=== PATIENT | male | born 1955 | race African-American/Black ===

== ENCOUNTER 2018-01-11 05:50 | Inpatient (IN) ==
[2018-01-11] MEDS ORDERED: VANCOMYCIN 1,000 MG VIAL ONE (06:01)
[2018-01-11] MEDS ORDERED: ceFAZolin 2,000 MG in PREMIX 1 EACH IV ONE (06:30)
[2018-01-11] MEDS ORDERED: VANCOMYCIN INJ 1,000 MG in SODIUM CHLORIDE 0.9% 250 ML IV ONE (06:30)
[2018-01-11] MEDS ORDERED: BACITRACIN OINT 0.9 GM PACK TOP ONE (06:43)
[2018-01-11] MEDS ORDERED: LACTATED RINGERS 1,000 ML IV SCH (07:00)
[2018-01-11] MEDS ORDERED: ONDANSETRON 4 MG/2 ML VIAL IV PRN (07:21)
[2018-01-11] MEDS ORDERED: MORPHINE 4 MG/1 ML VIAL IV PRN ×2 (07:21)
[2018-01-11] MEDS ORDERED: MAGNESIUM HYDROXIDE SUSP 30 ML UDCUP PO PRN (07:21)
[2018-01-11] MEDS ORDERED: oxyCODONE IR 5 MG TABLET PO PRN ×2 (07:21)
[2018-01-11] MEDS ORDERED: ZALEPLON 5 MG CAPSULE PO PRN (07:21)
[2018-01-11] MEDS ORDERED: diphenhydrAMINE CAP 25 MG CAPSULE PO PRN (07:23)
[2018-01-11] MEDS ORDERED: fentaNYL 100 MCG/2 ML VIAL ONE (09:34)
[2018-01-11] MEDS ORDERED: PROPOFOL 200 MG/20 ML VIAL IV ONE (09:34)
[2018-01-11] MEDS ORDERED: LACTATED RINGERS 1,000 ML IV ONE (09:35)
[2018-01-11] MEDS ORDERED: TRANEXAMIC ACID 1,000 MG/10 ML VIAL ONE (09:35)
[2018-01-11] MEDS ORDERED: PHENYLEPHRINE 10 MG/1 ML VIAL IV ONE (09:35)
[2018-01-11] MEDS ORDERED: MIDAZOLAM 2 MG/2 ML VIAL ONE (09:35)
[2018-01-11] MEDS ORDERED: ACETAMINOPHEN 1,000 MG/100 ML VIAL IV ONE (09:35)
[2018-01-11 09:40] LABS: Apearance,Urine CLEAR (Clear); Bilirubin,Urine Negative (Negative); Blood, Urine Negative (Negative); Glucose,Urine (UA) Negative (Negative); Ketones,Urine Negative (Negative); Mucus,Urine Occasional /LPF (Occasional); Nitrite,Urine Negative (Negative); Protein,Urine Negative; RBC,Urine <1 /HPF (0-4); Urine Color Yellow (Yellow); Urine Specific Gravity 1.015 (1.001-1.035); Urine Urobilinogen < 2.0 EU/DL (0.2-1.0); WBC,Urine <1 /HPF (0-6)
[2018-01-11 11:23] LABS: Basophils % 0.3 % (0.0-0.8); Eosinophils # 0.5 10*3/uL (0.0-0.87); Eosinophils % 4.6 % (0.00-10.9); Hematocrit 41.8 VOL% (42.0-52.0); Hemoglobin 13.3 GM/DL (14.0-18.0); Immature Granulocytes % 0.4 %; Immature Granulocytes Absolute 0.05 #; Lymphocytes # 1.8 10*3/uL (1.4-4.0); Lymphocytes % 15.8 % (21.2-54.2); Mean Corpuscular HGB Conc 31.8 GM/DL (32-36); Mean Corpuscular Hemoglobin 27 PG (27-34); Mean Corpuscular Volume 84.1 FL (87-102); Mean Platelet Volume 11.2 FL (9.6-12.0); Monocytes # 1.1 10*3/uL (0.11-0.8); Monocytes % 9.1 % (1.7-12.7); Neutrophils # 8.1 10*3/uL (1.4-7.4); Neutrophils % 69.8 % (38.7-73.9); Platelet Count 204 T/CUMM (130-400); Red Blood Count 4.97 MC/CUMM (3.8-5.5); Red Cell Distribution Width 15.1 % (9.3-17.3); White Blood Count 11.6 T/CUMM (4-12)
[2018-01-11 11:59] LABS: Calcium 8.5 MG/DL (8.5-10.1); Osmolality,Calculated 282.3 MOS/KG (273-304); Potassium 4.5 MMOL/L (3.5-5.1)
[2018-01-11] MEDS: LACTATED RINGERS 1,000 ML IV SCH ×2 (12:47→16:06)
[2018-01-11] MEDS: PANTOPRAZOLE 40 MG TABLET PO SCH (13:11)
[2018-01-11] MEDS: KETOROLAC 30 MG/1 ML VIAL IV SCH ×3 (13:11→20:39)
[2018-01-11] MEDS: SERTRALINE 50 MG TABLET PO SCH (13:11)
[2018-01-11] MEDS: DOCUSATE SODIUM 100 MG CAPSULE PO SCH ×2 (13:11→20:38)
[2018-01-11] MEDS: ceFAZolin 2,000 MG in PREMIX 1 EACH IV SCH ×2 (13:12→20:40)
[2018-01-11] MEDS: ACETAMINOPHEN 500 MG TABLET PO SCH ×2 (15:18→17:53)
[2018-01-11] MEDS: HydrOXYzine PAMOATE 50 MG CAPSULE PO SCH (20:38)
[2018-01-12] MEDS: ACETAMINOPHEN 500 MG TABLET PO SCH ×2 (00:20→05:19)
[2018-01-12] MEDS: LACTATED RINGERS 1,000 ML IV SCH (00:26)
[2018-01-12] MEDS: KETOROLAC 30 MG/1 ML VIAL IV SCH ×3 (02:47→08:02)
[2018-01-12] MEDS: FONDAPARINUX 2.5 MG/0.5 ML SYRINGE SUBCUT SCH (05:19)
[2018-01-12 06:32] LABS: Basophils % 0.4 % (0.0-0.8); Eosinophils # 0.4 10*3/uL (0.0-0.87); Eosinophils % 4.8 % (0.00-10.9); Hematocrit 39.5 VOL% (42.0-52.0); Hemoglobin 12.3 GM/DL (14.0-18.0); Immature Granulocytes % 0.3 %; Immature Granulocytes Absolute 0.02 #; Lymphocytes # 1.5 10*3/uL (1.4-4.0); Lymphocytes % 20.6 % (21.2-54.2); Mean Corpuscular HGB Conc 31.1 GM/DL (32-36); Mean Corpuscular Hemoglobin 26 PG (27-34); Mean Corpuscular Volume 84.8 FL (87-102); Mean Platelet Volume 10.9 FL (9.6-12.0); Monocytes # 1.3 10*3/uL (0.11-0.8); Monocytes % 17.6 % (1.7-12.7); Neutrophils # 4.1 10*3/uL (1.4-7.4); Neutrophils % 56.3 % (38.7-73.9); Platelet Count 163 T/CUMM (130-400); Red Blood Count 4.66 MC/CUMM (3.8-5.5); Red Cell Distribution Width 14.8 % (9.3-17.3); White Blood Count 7.3 T/CUMM (4-12)
[2018-01-12 06:55] LABS: Calcium 8.1 MG/DL (8.5-10.1); Osmolality,Calculated 273.7 MOS/KG (273-304); Potassium 3.8 MMOL/L (3.5-5.1)
[2018-01-12 06:55] LABS: Band Neutrophils 3 % (0-10); Eosinophils 4 % (0-10); Hypochromasia 1+; Lymphocytes 30 % (20-55); Ovalocytes Slight; Platelet Estimate Normal; Segmented Neutrophils 53 % (50-85); Total Cells Counted 100
[2018-01-12] MEDS: hydroCHLOROthiazide 25 MG TABLET PO SCH (08:01)
[2018-01-12] MEDS: PANTOPRAZOLE 40 MG TABLET PO SCH (08:01)
[2018-01-12] MEDS: DOCUSATE SODIUM 100 MG CAPSULE PO SCH ×2 (08:01→20:16)
[2018-01-12] MEDS: OLMESARTAN 20 MG TABLET PO SCH (08:02)
[2018-01-12] MEDS: amLODIPine 5 MG TABLET PO SCH (08:02)
[2018-01-12] MEDS: SERTRALINE 50 MG TABLET PO SCH (08:05)
[2018-01-12] MEDS: CELECOXIB 200 MG CAPSULE PO SCH (14:47)
[2018-01-12] MEDS: HydrOXYzine PAMOATE 50 MG CAPSULE PO SCH (20:16)
[2018-01-13 05:59] LABS: Basophils % 0.3 % (0.0-0.8); Eosinophils # 0.4 10*3/uL (0.0-0.87); Eosinophils % 3.4 % (0.00-10.9); Hematocrit 38.2 VOL% (42.0-52.0); Hemoglobin 12.1 GM/DL (14.0-18.0); Immature Granulocytes % 0.7 %; Immature Granulocytes Absolute 0.08 #; Lymphocytes # 2.3 10*3/uL (1.4-4.0); Lymphocytes % 20.9 % (21.2-54.2); Mean Corpuscular HGB Conc 31.7 GM/DL (32-36); Mean Corpuscular Hemoglobin 27 PG (27-34); Mean Corpuscular Volume 84.1 FL (87-102); Mean Platelet Volume 11.3 FL (9.6-12.0); Monocytes # 1.9 10*3/uL (0.11-0.8); Monocytes % 16.8 % (1.7-12.7); Neutrophils # 6.4 10*3/uL (1.4-7.4); Neutrophils % 57.9 % (38.7-73.9); Platelet Count 162 T/CUMM (130-400); Red Blood Count 4.54 MC/CUMM (3.8-5.5); Red Cell Distribution Width 14.7 % (9.3-17.3)
[2018-01-13 06:26] LABS: Eosinophils 7 % (0-10); Hypochromasia 1+; Lymphocytes 20 % (20-55); Ovalocytes Slight; Platelet Estimate Adequate; Segmented Neutrophils 62 % (50-85); Total Cells Counted 100
[2018-01-13] MEDS: FONDAPARINUX 2.5 MG/0.5 ML SYRINGE SUBCUT SCH (06:44)
[2018-01-13] MEDS: CELECOXIB 200 MG CAPSULE PO SCH (09:40)
[2018-01-13] MEDS: OLMESARTAN 20 MG TABLET PO SCH (09:40)
[2018-01-13] MEDS: PANTOPRAZOLE 40 MG TABLET PO SCH (09:40)
[2018-01-13] MEDS: SERTRALINE 50 MG TABLET PO SCH (09:40)
[2018-01-13] MEDS: amLODIPine 5 MG TABLET PO SCH (09:40)
[2018-01-13] MEDS: DOCUSATE SODIUM 100 MG CAPSULE PO SCH ×2 (09:40→21:06)
[2018-01-13] MEDS: hydroCHLOROthiazide 25 MG TABLET PO SCH (09:40)
[2018-01-13] MEDS: HydrOXYzine PAMOATE 50 MG CAPSULE PO SCH (21:06)
[2018-01-14 05:10] LABS: Basophils % 0.5 % (0.0-0.8); Eosinophils # 0.4 10*3/uL (0.0-0.87); Eosinophils % 4.2 % (0.00-10.9); Hematocrit 34.6 VOL% (42.0-52.0); Hemoglobin 11.2 GM/DL (14.0-18.0); Immature Granulocytes % 0.7 %; Immature Granulocytes Absolute 0.06 #; Lymphocytes # 1.6 10*3/uL (1.4-4.0); Lymphocytes % 18.6 % (21.2-54.2); Mean Corpuscular HGB Conc 32.4 GM/DL (32-36); Mean Corpuscular Hemoglobin 27 PG (27-34); Mean Platelet Volume 11.5 FL (9.6-12.0); Monocytes # 1.3 10*3/uL (0.11-0.8); Monocytes % 14.9 % (1.7-12.7); Neutrophils # 5.2 10*3/uL (1.4-7.4); Neutrophils % 61.1 % (38.7-73.9); Platelet Count 168 T/CUMM (130-400); Red Blood Count 4.17 MC/CUMM (3.8-5.5); Red Cell Distribution Width 14.6 % (9.3-17.3); White Blood Count 8.5 T/CUMM (4-12)
[2018-01-14] MEDS: FONDAPARINUX 2.5 MG/0.5 ML SYRINGE SUBCUT SCH (06:44)
[2018-01-14 07:38] VITALS: BP 128/74
[2018-01-14] MEDS: PANTOPRAZOLE 40 MG TABLET PO SCH (09:08)
[2018-01-14] MEDS: amLODIPine 5 MG TABLET PO SCH (09:08)
[2018-01-14] MEDS: hydroCHLOROthiazide 25 MG TABLET PO SCH (09:08)
[2018-01-14] MEDS: CELECOXIB 200 MG CAPSULE PO SCH (09:08)
[2018-01-14] MEDS: SERTRALINE 50 MG TABLET PO SCH (09:09)
[2018-01-14] MEDS: OLMESARTAN 20 MG TABLET PO SCH (09:09)
[2018-01-14] MEDS: DOCUSATE SODIUM 100 MG CAPSULE PO SCH (09:09)
== END 2018-01-14 10:48 | disposition swing bed (61) | DRG 470 ==
LOC: N.OR 05:50 → N.SDSINP 05:51 → N.3E 07:21
PROVIDERS: ADMIT Orthopaedic Surgery; ATTEND Orthopaedic Surgery

== ENCOUNTER 2018-11-16 05:56 | Inpatient (IN) ==
[2018-11-16] MEDS ORDERED: VANCOMYCIN INJ 1,000 MG in SODIUM CHLORIDE 0.9% 250 ML IV ONE ×2 (06:00→16:56)
[2018-11-16] MEDS ORDERED: ceFAZolin 1,000 MG in SYRINGE 1 EACH IV ONE (06:00)
[2018-11-16] MEDS ORDERED: VANCOMYCIN 1,000 MG VIAL ONE (06:01)
[2018-11-16] MEDS ORDERED: ceFAZolin 1,000 MG VIAL ONE (06:01)
[2018-11-16] MEDS ORDERED: TRANEXAMIC ACID 1,000 MG/10 ML VIAL ONE (06:41)
[2018-11-16] MEDS ORDERED: GABAPENTIN 400 MG CAPSULE PO ONE (07:18)
[2018-11-16] MEDS ORDERED: DIAZEPAM 5 MG TABLET PO ONE (07:18)
[2018-11-16] MEDS ORDERED: PANTOPRAZOLE 40 MG TABLET PO ONE ×2 (07:18→07:36)
[2018-11-16] MEDS ORDERED: ACETAMINOPHEN 500 MG TABLET PO ONE (07:18)
[2018-11-16] MEDS ORDERED: DIAZEPAM 5 MG TABLET ONE (07:22)
[2018-11-16] MEDS ORDERED: GABAPENTIN 400 MG CAPSULE ONE (07:22)
[2018-11-16] MEDS ORDERED: FAMOTIDINE 20 MG TABLET ONE (07:23)
[2018-11-16] MEDS ORDERED: ACETAMINOPHEN 500 MG TABLET ONE (07:23)
[2018-11-16] MEDS ORDERED: BUPIVACAINE 0.5% 50 ML VIAL ONE (07:30)
[2018-11-16] MEDS ORDERED: LACTATED RINGERS 1,000 ML IV SCH (07:30)
[2018-11-16] MEDS ORDERED: LIDOCAINE 1% 5 ML VIAL ONE (07:30)
[2018-11-16] MEDS ORDERED: BUPIVACAINE SPINAL 0.75% 2 ML AMP SPINAL ONE (07:30)
[2018-11-16] MEDS ORDERED: MORPHINE 10 MG/10 ML VIAL ONE (07:31)
[2018-11-16] MEDS ORDERED: DEXAMETHASONE 4 MG/1 ML VIAL ONE (07:31)
[2018-11-16] MEDS ORDERED: EPINEPHrine 1 MG/ML VIAL ONE (07:31)
[2018-11-16] MEDS ORDERED: oxyCODONE IR 5 MG TABLET PO PRN ×2 (08:55)
[2018-11-16] MEDS ORDERED: MAGNESIUM HYDROXIDE SUSP 30 ML UDCUP PO PRN (08:55)
[2018-11-16] MEDS ORDERED: ONDANSETRON 4 MG/2 ML VIAL IV PRN (08:55)
[2018-11-16] MEDS ORDERED: diphenhydrAMINE CAP 25 MG CAPSULE PO PRN (08:55)
[2018-11-16] MEDS ORDERED: MORPHINE 4 MG/1 ML VIAL IV PRN ×2 (08:55)
[2018-11-16] MEDS ORDERED: BACITRACIN OINT 0.9 GM PACK TOP ONE (09:27)
[2018-11-16 10:31] LABS: Apearance,Urine CLEAR (Clear); Bilirubin,Urine Negative (Negative); Blood, Urine Negative (Negative); Glucose,Urine (UA) Negative (Negative); Hyaline Casts,Urine 1 /LPF (0-3); Ketones,Urine Negative (Negative); Nitrite,Urine Negative (Negative); Protein,Urine Negative; RBC,Urine 1 /HPF (0-4); Urine Color Straw (Yellow); Urine Urobilinogen < 2.0 EU/DL (0.2-1.0); WBC,Urine <1 /HPF (0-6)
[2018-11-16] MEDS ORDERED: PROPOFOL 200 MG/20 ML VIAL IV ONE (10:31)
[2018-11-16] MEDS ORDERED: fentaNYL 100 MCG/2 ML VIAL ONE (10:32)
[2018-11-16] MEDS ORDERED: KETAMINE 500 MG/10 ML VIAL ONE (10:32)
[2018-11-16] MEDS ORDERED: SODIUM CHLORIDE 0.9% 100 ML IV ONE (10:33)
[2018-11-16] MEDS ORDERED: PHENYLEPHRINE 10 MG/1 ML VIAL IV ONE (10:33)
[2018-11-16] MEDS ORDERED: MIDAZOLAM 2 MG/2 ML VIAL ONE (10:33)
[2018-11-16] MEDS ORDERED: LACTATED RINGERS 1,000 ML IV ONE (10:33)
[2018-11-16] MEDS ORDERED: ONDANSETRON 4 MG/2 ML VIAL ONE (10:33)
[2018-11-16] MEDS ORDERED: PHENYLEPHRINE 1 MG/10 ML SYRINGE IV ONE (10:33)
[2018-11-16] MEDS ORDERED: hydrOXYzine HCL 25 MG/1 ML VIAL IM PRN (10:36)
[2018-11-16] MEDS ORDERED: diphenhydrAMINE 50 MG/1 ML VIAL IV PRN (10:36)
[2018-11-16] MEDS: DOCUSATE SODIUM 100 MG CAPSULE PO SCH ×2 (12:47→20:44)
[2018-11-16] MEDS: SERTRALINE 100 MG TABLET PO SCH (12:47)
[2018-11-16] MEDS: ACETAMINOPHEN 500 MG TABLET PO SCH ×2 (12:47→18:19)
[2018-11-16] MEDS: TAMSULOSIN 0.4 MG CAPSULE PO SCH (12:47)
[2018-11-16] MEDS: KETOROLAC 30 MG/1 ML VIAL IV SCH ×2 (12:48→18:17)
[2018-11-16] MEDS: ceFAZolin 2,000 MG in SYRINGE 1 EACH IV SCH ×2 (12:50→20:45)
[2018-11-16] MEDS: PANTOPRAZOLE 40 MG TABLET PO SCH (12:51)
[2018-11-16] MEDS: LACTATED RINGERS 1,000 ML IV SCH ×2 (12:58→20:46)
[2018-11-16] MEDS: traZODone 50 MG TABLET PO SCH (20:44)
[2018-11-17] MEDS: ACETAMINOPHEN 500 MG TABLET PO SCH ×2 (01:43→05:55)
[2018-11-17] MEDS: KETOROLAC 30 MG/1 ML VIAL IV SCH ×2 (01:43→05:59)
[2018-11-17] MEDS: FONDAPARINUX 2.5 MG/0.5 ML SYRINGE SUBCUT SCH (03:38)
[2018-11-17 05:23] LABS: Basophils % 0.3 % (0.0-0.8); Eosinophils % 0.3 % (0.00-10.9); Hematocrit 33.3 VOL% (42.0-52.0); Hemoglobin 9.8 GM/DL (14.0-18.0); Immature Granulocytes % 0.4 %; Immature Granulocytes Absolute 0.03 #; Lymphocytes # 1.1 10*3/uL (1.4-4.0); Mean Corpuscular HGB Conc 29.4 GM/DL (32-36); Mean Corpuscular Volume 87.6 FL (87-102); Mean Platelet Volume 11.4 FL (9.6-12.0); Monocytes % 14.2 % (1.7-12.7); Neutrophils % 70.8 % (38.7-73.9); Platelet Count 191 T/CUMM (130-400); Red Cell Distribution Width 14.6 % (9.3-17.3); White Blood Count 7.5 T/CUMM (4-12)
[2018-11-17 05:38] LABS: Calcium 8.5 MG/DL (8.5-10.1); Osmolality,Calculated 276.5 MOS/KG (273-304)
[2018-11-17] MEDS ORDERED: KETOROLAC 30 MG/1 ML VIAL ONE (05:45)
[2018-11-17] MEDS: LACTATED RINGERS 1,000 ML IV SCH (05:50)
[2018-11-17] MEDS: PANTOPRAZOLE 40 MG TABLET PO SCH (09:40)
[2018-11-17] MEDS: SERTRALINE 100 MG TABLET PO SCH (09:40)
[2018-11-17] MEDS: OLMESARTAN 20 MG TABLET PO SCH (09:40)
[2018-11-17] MEDS: hydroCHLOROthiazide 25 MG TABLET PO SCH ×2 (09:40→09:41)
[2018-11-17] MEDS: TAMSULOSIN 0.4 MG CAPSULE PO SCH (09:40)
[2018-11-17] MEDS: DOCUSATE SODIUM 100 MG CAPSULE PO SCH ×2 (09:41→20:50)
[2018-11-17] MEDS: amLODIPine 5 MG TABLET PO SCH (09:41)
[2018-11-17] MEDS ORDERED: ceFAZolin 2,000 MG in SYRINGE 1 EACH IV ONE (13:30)
[2018-11-17] MEDS ORDERED: CITRIC ACID/SODIUM CITRATE 30 ML UDCUP ONE (13:59)
[2018-11-17] MEDS ORDERED: SUGAMMADEX 200 MG/2 ML VIAL IV ONE (14:32)
[2018-11-17] MEDS ORDERED: HYDROmorphone 2 MG/1 ML VIAL ONE (14:57)
[2018-11-17] MEDS ORDERED: PROPOFOL 200 MG/20 ML VIAL IV ONE (15:00)
[2018-11-17] MEDS: HYDROmorphone 2 MG/1 ML VIAL IV PRN ×4 (15:00→15:15)
[2018-11-17] MEDS ORDERED: MIDAZOLAM 2 MG/2 ML VIAL ONE (15:01)
[2018-11-17] MEDS ORDERED: GLYCOPYRROLATE 0.4 MG/2 ML VIAL ONE (15:01)
[2018-11-17] MEDS ORDERED: ONDANSETRON 4 MG/2 ML VIAL ONE (15:01)
[2018-11-17] MEDS ORDERED: fentaNYL 100 MCG/2 ML VIAL ONE (15:01)
[2018-11-17] MEDS ORDERED: ePHEDrine 50 MG/ML AMP ONE (15:01)
[2018-11-17] MEDS ORDERED: ROCURONIUM 100 MG/10 ML VIAL IV ONE (15:02)
[2018-11-17] MEDS ORDERED: SUCCINYLCHOLINE 200 MG/10 ML VIAL ONE (15:02)
[2018-11-17] MEDS: CELECOXIB 200 MG CAPSULE PO SCH (20:23)
[2018-11-17] MEDS: traZODone 50 MG TABLET PO SCH (20:50)
[2018-11-18] MEDS: LACTATED RINGERS 1,000 ML IV SCH ×3 (05:42→22:14)
[2018-11-18] MEDS ORDERED: ceFAZolin 2,000 MG in SODIUM CHLORIDE 0.9% 100 ML IV ONE (06:00)
[2018-11-18] MEDS ORDERED: VANCOMYCIN INJ 1,750 MG in SODIUM CHLORIDE 0.9% 500 ML IV ONE ×2 (06:00→22:00)
[2018-11-18 06:44] LABS: Basophils % 0.4 % (0.0-0.8); Eosinophils # 0.2 10*3/uL (0.0-0.87); Eosinophils % 2.7 % (0.00-10.9); Hematocrit 30.1 VOL% (42.0-52.0); Hemoglobin 9.3 GM/DL (14.0-18.0); Immature Granulocytes % 0.3 %; Immature Granulocytes Absolute 0.03 #; Lymphocytes # 1.8 10*3/uL (1.4-4.0); Lymphocytes % 19.4 % (21.2-54.2); Mean Corpuscular HGB Conc 30.9 GM/DL (32-36); Mean Corpuscular Volume 84.1 FL (87-102); Monocytes % 15.6 % (1.7-12.7); Neutrophils % 61.6 % (38.7-73.9); Platelet Count 199 T/CUMM (130-400); Red Blood Count 3.58 MC/CUMM (3.8-5.5); Red Cell Distribution Width 14.6 % (9.3-17.3)
[2018-11-18 07:10] LABS: Eosinophils 2 % (0-10); Hypochromasia 1+; Lymphocytes 16 % (20-55); Platelet Estimate Adequate; Segmented Neutrophils 68 % (50-85); Total Cells Counted 100
[2018-11-18] MEDS ORDERED: EPINEPHrine 1 MG/ML VIAL ONE (08:49)
[2018-11-18] MEDS ORDERED: BUPIVACAINE SPINAL 0.75% 2 ML AMP SPINAL ONE (08:49)
[2018-11-18] MEDS ORDERED: DEXAMETHASONE 4 MG/1 ML VIAL ONE (08:49)
[2018-11-18] MEDS ORDERED: ROPIVACAINE 0.5% 30 ML VIAL ONE (08:49)
[2018-11-18] MEDS ORDERED: fentaNYL 100 MCG/2 ML VIAL ONE ×2 (08:50→11:45)
[2018-11-18] MEDS ORDERED: BACITRACIN OINT 0.9 GM PACK TOP ONE ×2 (08:51→11:21)
[2018-11-18] MEDS: CELECOXIB 200 MG CAPSULE PO SCH (11:09)
[2018-11-18] MEDS: OLMESARTAN 20 MG TABLET PO SCH (11:09)
[2018-11-18] MEDS: TAMSULOSIN 0.4 MG CAPSULE PO SCH (11:09)
[2018-11-18] MEDS: DOCUSATE SODIUM 100 MG CAPSULE PO SCH ×2 (11:09→20:54)
[2018-11-18] MEDS: amLODIPine 5 MG TABLET PO SCH (11:10)
[2018-11-18] MEDS: SERTRALINE 100 MG TABLET PO SCH (11:10)
[2018-11-18] MEDS: hydroCHLOROthiazide 25 MG TABLET PO SCH (11:10)
[2018-11-18] MEDS: PANTOPRAZOLE 40 MG TABLET PO SCH (11:10)
[2018-11-18] MEDS ORDERED: PROPOFOL 200 MG/20 ML VIAL IV ONE (11:44)
[2018-11-18] MEDS ORDERED: GLYCOPYRROLATE 0.4 MG/2 ML VIAL ONE (11:45)
[2018-11-18] MEDS ORDERED: SUCCINYLCHOLINE 200 MG/10 ML VIAL ONE (11:45)
[2018-11-18] MEDS ORDERED: DESFLURANE 1 UNIT/15 MINUTE INH ONE (11:45)
[2018-11-18] MEDS ORDERED: PHENYLEPHRINE 1 MG/10 ML SYRINGE IV ONE (11:45)
[2018-11-18] MEDS ORDERED: NEOSTIGMINE 10 MG/10 ML VIAL ONE (11:45)
[2018-11-18] MEDS ORDERED: SEVOFLURANE 1 UNIT/15 MINUTE INH ONE (11:45)
[2018-11-18] MEDS ORDERED: LACTATED RINGERS 1,000 ML IV ONE (11:45)
[2018-11-18] MEDS ORDERED: ROCURONIUM 100 MG/10 ML VIAL IV ONE (11:45)
[2018-11-18] MEDS ORDERED: KETAMINE 500 MG/10 ML VIAL ONE (11:47)
[2018-11-18] MEDS ORDERED: MIDAZOLAM 2 MG/2 ML VIAL ONE (11:50)
[2018-11-18] MEDS: HYDROmorphone 2 MG/1 ML VIAL IV PRN ×2 (12:05→12:20)
[2018-11-18] MEDS ORDERED: ONDANSETRON 4 MG/2 ML VIAL IV PRN (12:12)
[2018-11-18] MEDS ORDERED: HYDROmorphone 2 MG/1 ML VIAL ONE (12:14)
[2018-11-18] MEDS: ceFAZolin 2,000 MG in SODIUM CHLORIDE 0.9% 100 ML IV SCH (18:13)
[2018-11-18] MEDS: traZODone 50 MG TABLET PO SCH (20:37)
[2018-11-19] MEDS: ceFAZolin 2,000 MG in SODIUM CHLORIDE 0.9% 100 ML IV SCH ×3 (02:04→17:36)
[2018-11-19 04:52] LABS: Basophils % 0.1 % (0.0-0.8); Eosinophils # 0.1 10*3/uL (0.0-0.87); Eosinophils % 0.7 % (0.00-10.9); Hematocrit 27.8 VOL% (42.0-52.0); Hemoglobin 8.5 GM/DL (14.0-18.0); Immature Granulocytes % 0.6 %; Immature Granulocytes Absolute 0.05 #; Lymphocytes # 1.1 10*3/uL (1.4-4.0); Lymphocytes % 12.5 % (21.2-54.2); Mean Corpuscular HGB Conc 30.6 GM/DL (32-36); Mean Corpuscular Volume 84.5 FL (87-102); Mean Platelet Volume 11.4 FL (9.6-12.0); Monocytes % 16.1 % (1.7-12.7); Platelet Count 180 T/CUMM (130-400); Red Blood Count 3.29 MC/CUMM (3.8-5.5); Red Cell Distribution Width 14.4 % (9.3-17.3); White Blood Count 8.9 T/CUMM (4-12)
[2018-11-19 05:18] LABS: Hypochromasia 1+
[2018-11-19 05:19] LABS: Platelet Estimate Adequate
[2018-11-19] MEDS: DOCUSATE SODIUM 100 MG CAPSULE PO SCH ×2 (09:21→21:13)
[2018-11-19] MEDS: TAMSULOSIN 0.4 MG CAPSULE PO SCH (09:21)
[2018-11-19] MEDS: OLMESARTAN 20 MG TABLET PO SCH (09:21)
[2018-11-19] MEDS: hydroCHLOROthiazide 25 MG TABLET PO SCH (09:21)
[2018-11-19] MEDS: SERTRALINE 100 MG TABLET PO SCH (09:21)
[2018-11-19] MEDS: PANTOPRAZOLE 40 MG TABLET PO SCH (09:21)
[2018-11-19] MEDS: amLODIPine 5 MG TABLET PO SCH (09:21)
[2018-11-19] MEDS: CELECOXIB 200 MG CAPSULE PO SCH (09:21)
[2018-11-19] MEDS: LACTATED RINGERS 1,000 ML IV SCH (12:08)
[2018-11-19] MEDS: traZODone 50 MG TABLET PO SCH (21:13)
[2018-11-20] MEDS: ceFAZolin 2,000 MG in SODIUM CHLORIDE 0.9% 100 ML IV SCH ×2 (01:25→09:12)
[2018-11-20] MEDS: FONDAPARINUX 2.5 MG/0.5 ML SYRINGE SUBCUT SCH (02:15)
[2018-11-20] MEDS: OLMESARTAN 20 MG TABLET PO SCH (09:12)
[2018-11-20] MEDS: TAMSULOSIN 0.4 MG CAPSULE PO SCH (09:12)
[2018-11-20] MEDS: SERTRALINE 100 MG TABLET PO SCH (09:12)
[2018-11-20] MEDS: PANTOPRAZOLE 40 MG TABLET PO SCH (09:12)
[2018-11-20] MEDS: DOCUSATE SODIUM 100 MG CAPSULE PO SCH ×2 (09:12→21:34)
[2018-11-20] MEDS: amLODIPine 5 MG TABLET PO SCH (09:12)
[2018-11-20] MEDS: CELECOXIB 200 MG CAPSULE PO SCH (09:12)
[2018-11-20] MEDS: hydroCHLOROthiazide 25 MG TABLET PO SCH (09:12)
[2018-11-20] MEDS: traZODone 50 MG TABLET PO SCH (21:34)
[2018-11-21] MEDS: FONDAPARINUX 2.5 MG/0.5 ML SYRINGE SUBCUT SCH (02:45)
[2018-11-21] MEDS: CELECOXIB 200 MG CAPSULE PO SCH (08:19)
[2018-11-21] MEDS: SERTRALINE 100 MG TABLET PO SCH (08:19)
[2018-11-21] MEDS: OLMESARTAN 20 MG TABLET PO SCH (08:19)
[2018-11-21] MEDS: TAMSULOSIN 0.4 MG CAPSULE PO SCH (08:20)
[2018-11-21] MEDS: DOCUSATE SODIUM 100 MG CAPSULE PO SCH ×2 (08:20→21:12)
[2018-11-21] MEDS: amLODIPine 5 MG TABLET PO SCH (08:20)
[2018-11-21] MEDS: hydroCHLOROthiazide 25 MG TABLET PO SCH (08:20)
[2018-11-21] MEDS: PANTOPRAZOLE 40 MG TABLET PO SCH (08:20)
[2018-11-21] MEDS: traZODone 50 MG TABLET PO SCH (21:12)
[2018-11-22] MEDS: FONDAPARINUX 2.5 MG/0.5 ML SYRINGE SUBCUT SCH (03:40)
[2018-11-22] MEDS: PANTOPRAZOLE 40 MG TABLET PO SCH (08:21)
[2018-11-22] MEDS: TAMSULOSIN 0.4 MG CAPSULE PO SCH (08:21)
[2018-11-22] MEDS: OLMESARTAN 20 MG TABLET PO SCH (08:21)
[2018-11-22] MEDS: amLODIPine 5 MG TABLET PO SCH (08:21)
[2018-11-22] MEDS: SERTRALINE 100 MG TABLET PO SCH (08:21)
[2018-11-22] MEDS: CELECOXIB 200 MG CAPSULE PO SCH (08:21)
[2018-11-22] MEDS: hydroCHLOROthiazide 25 MG TABLET PO SCH (08:21)
[2018-11-22] MEDS: DOCUSATE SODIUM 100 MG CAPSULE PO SCH (08:21)
[2018-11-22 11:09] VITALS: BP 100/57
[2018-11-22] MEDS ORDERED: NYSTATIN CREAM 15 GM TUBE TOP SCH (13:00)
== END 2018-11-22 13:55 | disposition swing bed (61) | DRG 467 ==
LOC: N.SDSINP 05:56 → N.3E 09:02
PROVIDERS: ADMIT Orthopaedic Surgery; ATTEND Orthopaedic Surgery

== ENCOUNTER 2020-10-02 13:40 | Inpatient (IN) ==
[2020-10-02] MEDS ORDERED: ASPIRIN 325 MG TABLET PO STA (14:18)
[2020-10-02] MEDS ORDERED: ONDANSETRON 4 MG/2 ML VIAL IV STA (14:18)
[2020-10-02] MEDS ORDERED: MORPHINE 4 MG/1 ML VIAL IV STA (14:18)
[2020-10-02] MEDS ORDERED: NITROGLYCERIN 2% OINT 1 INCH/GM PACK TOP STA (14:18)
[2020-10-02] MEDS ORDERED: ENOXAPARIN 100 MG/ML SYRINGE SUBCUT STA (14:18)
[2020-10-02] MEDS ORDERED: METOPROLOL TARTRATE 5 MG/5 ML VIAL IV STA (14:23)
[2020-10-02 14:35] LABS: Basophils % 0.4 % (0.0-0.8); Eosinophils % 0.5 % (0.00-10.9); Hematocrit 46.9 VOL% (42.0-52.0); Hemoglobin 14.7 GM/DL (14.0-18.0); Immature Granulocytes % 0.3 %; Immature Granulocytes Absolute 0.02 #; Lymphocytes # 1.6 10*3/uL (1.4-4.0); Lymphocytes % 19.9 % (21.2-54.2); Mean Corpuscular HGB Conc 31.3 GM/DL (32-36); Mean Corpuscular Volume 83.6 FL (87-102); Mean Platelet Volume 12.6 FL (9.6-12.0); Monocytes % 9.5 % (1.7-12.7); Neutrophils % 69.4 % (38.7-73.9); Platelet Count 229 T/CUMM (130-400); Red Blood Count 5.61 MC/CUMM (3.8-5.5); Red Cell Distribution Width 15.2 % (9.3-17.3); White Blood Count 7.8 T/CUMM (4-12)
[2020-10-02 14:43] LABS: INR 1.7; PT Patient Result 18.8 SECS (10.5-12.0); Partial Thromboplastin Time 37.6 SECS (23.9-33.8)
[2020-10-02] MEDS ORDERED: diphenhydrAMINE CAP 25 MG CAPSULE ONE (14:54)
[2020-10-02] MEDS ORDERED: DIAZEPAM 5 MG TABLET ONE (14:55)
[2020-10-02 14:56] LABS: Albumin 3.7 G/DL (3.4-5.0); Bilirubin,Total 0.6 MG/DL (0.2-1.0); Calcium 9.3 MG/DL (8.5-10.1); Osmolality,Calculated 280.4 MOS/KG (273-304); Potassium 4.2 MMOL/L (3.5-5.1); Total Protein 8.3 G/DL (6.4-8.2)
[2020-10-02] MEDS ORDERED: VERAPAMIL 5 MG/2 ML VIAL ONE (14:56)
[2020-10-02] MEDS ORDERED: LIDOCAINE 1% 20 ML VIAL ONE (14:56)
[2020-10-02] MEDS ORDERED: NITROGLYCERIN DRIP 50 MG/250 ML BOTTLE IV ONE (14:56)
[2020-10-02] MEDS ORDERED: HEPARIN/NACL 0.9% 2 UNITS/ML 2,000 UNIT/1,000 ML BAG IV ONE (14:56)
[2020-10-02] MEDS ORDERED: diphenhydrAMINE CAP 50 MG CAPSULE PO ONE (15:05)
[2020-10-02] MEDS ORDERED: DIAZEPAM 5 MG TABLET PO ONE (15:05)
[2020-10-02] MEDS ORDERED: MIDAZOLAM 2 MG/2 ML VIAL ONE (15:28)
[2020-10-02] MEDS ORDERED: HYDROmorphone 2 MG/1 ML VIAL ONE (15:28)
[2020-10-02] MEDS ORDERED: hydrALAZINE 20 MG/1 ML VIAL IV PRN (16:18)
[2020-10-02] MEDS ORDERED: PNEUMOCOCCAL VACCINE (23 VALENT) 0.5 ML VIAL IM ONE (16:35)
[2020-10-02] MEDS ORDERED: ALBUTEROL/IPRATROPIUM 3 ML NEB RESP TX ONE (16:40)
[2020-10-02] MEDS ORDERED: ALBUTEROL/IPRATROPIUM 3 ML NEB RESP TX PRN (16:40)
[2020-10-02] MEDS ORDERED: ALBUTEROL 2.5 MG/3 ML NEB RESP TX PRN (16:46)
[2020-10-02] MEDS ORDERED: ONDANSETRON 4 MG/2 ML VIAL IV PRN (16:47)
[2020-10-02] MEDS ORDERED: traZODone 50 MG TABLET PO PRN (17:49)
[2020-10-02] MEDS: PANTOPRAZOLE 40 MG VIAL IV SCH (17:51)
[2020-10-02] MEDS: ROSUVASTATIN 20 MG TABLET PO SCH (20:13)
[2020-10-02] MEDS: carvediloL 3.125 MG TABLET PO SCH (20:13)
[2020-10-02 22:45] LABS: Bilirubin,Urine Negative (Negative); Blood, Urine Small mg/dL (Negative); Glucose,Urine (UA) Negative (Negative); Ketones,Urine Negative (Negative); Mucus,Urine Occasional /LPF (Occasional); Nitrite,Urine Negative (Negative); Protein,Urine Negative; RBC,Urine 1 /HPF (0-4); Urine Appearance CLEAR (Clear); Urine Color Yellow (Yellow); Urine Specific Gravity 1.056 (1.001-1.035); Urine Urobilinogen < 2.0 EU/DL (0.2-1.0)
[2020-10-02 23:27] LABS: Barbiturates Screen,Urine Negative (Negative); Benzodiazepines Screen,Urine Positive (Negative); Cannabinoid Screen,Urine Negative (Negative); Opiate Screen,Urine Positive (Negative); Phencyclidine Screen,Urine Negative (Negative)
[2020-10-03 03:00] LABS: ABG Base Excess 0.9 MMOL/L (-2.5-2.5); ABG HCO3 25.1 MMOL/L (20-26); ABG Oxygen Saturation 95.7 % (95-100); ABG PCO2 45.4 MM HG (35-48); ABG PH 7.376 (7.35-7.45); ABG PO2 82.1 MM HG (80-95)
[2020-10-03 04:27] LABS: Basophils % 0.4 % (0.0-0.8); Eosinophils # 0.1 10*3/uL (0.0-0.87); Eosinophils % 1.1 % (0.00-10.9); Hematocrit 43.5 VOL% (42.0-52.0); Hemoglobin 13.7 GM/DL (14.0-18.0); Immature Granulocytes % 0.5 %; Immature Granulocytes Absolute 0.05 #; Lymphocytes # 0.5 10*3/uL (1.4-4.0); Lymphocytes % 5.1 % (21.2-54.2); Mean Corpuscular HGB Conc 31.5 GM/DL (32-36); Mean Corpuscular Volume 84.5 FL (87-102); Mean Platelet Volume 12.9 FL (9.6-12.0); Monocytes % 1.4 % (1.7-12.7); Neutrophils % 91.5 % (38.7-73.9); Platelet Count 165 T/CUMM (130-400); Red Blood Count 5.15 MC/CUMM (3.8-5.5); Red Cell Distribution Width 15.1 % (9.3-17.3); White Blood Count 10.3 T/CUMM (4-12)
[2020-10-03 04:57] LABS: Albumin 2.7 G/DL (3.4-5.0); Band Neutrophils 4 % (0-10); Bilirubin,Total 0.6 MG/DL (0.2-1.0); Calcium 8.3 MG/DL (8.5-10.1); Lymphocytes 5 % (20-55); Osmolality,Calculated 277.4 MOS/KG (273-304); Platelet Estimate Adequate; Potassium 3.6 MMOL/L (3.5-5.1); Risk Ratio 3.49; Segmented Neutrophils 89 % (50-85); Total Cells Counted 100; Total Protein 6.8 G/DL (6.4-8.2)
[2020-10-03] MEDS: TAMSULOSIN 0.4 MG CAPSULE PO SCH (08:22)
[2020-10-03] MEDS: carvediloL 3.125 MG TABLET PO SCH ×2 (08:22→20:16)
[2020-10-03] MEDS: ASPIRIN EC 81 MG TABLET PO SCH (08:22)
[2020-10-03] MEDS: amLODIPine 5 MG TABLET PO SCH (09:39)
[2020-10-03] MEDS: SERTRALINE 100 MG TABLET PO SCH (09:39)
[2020-10-03] MEDS: APIXABAN 5 MG TABLET PO SCH ×2 (11:06→20:15)
[2020-10-03] MEDS: PANTOPRAZOLE 40 MG VIAL IV SCH (17:17)
[2020-10-03] MEDS: ROSUVASTATIN 20 MG TABLET PO SCH (20:15)
[2020-10-04 06:13] LABS: Basophils % 0.3 % (0.0-0.8); Eosinophils # 0.5 10*3/uL (0.0-0.87); Eosinophils % 5.4 % (0.00-10.9); Hematocrit 42.7 VOL% (42.0-52.0); Hemoglobin 13.3 GM/DL (14.0-18.0); Immature Granulocytes % 0.5 %; Immature Granulocytes Absolute 0.04 #; Lymphocytes # 1.5 10*3/uL (1.4-4.0); Lymphocytes % 17.5 % (21.2-54.2); Mean Corpuscular HGB Conc 31.1 GM/DL (32-36); Mean Corpuscular Volume 85.7 FL (87-102); Mean Platelet Volume 12.8 FL (9.6-12.0); Monocytes % 11.4 % (1.7-12.7); Neutrophils % 64.9 % (38.7-73.9); Platelet Count 150 T/CUMM (130-400); Red Blood Count 4.98 MC/CUMM (3.8-5.5); Red Cell Distribution Width 15.2 % (9.3-17.3); White Blood Count 8.6 T/CUMM (4-12)
[2020-10-04 06:48] LABS: Calcium 8.6 MG/DL (8.5-10.1); Osmolality,Calculated 276.5 MOS/KG (273-304); Potassium 3.9 MMOL/L (3.5-5.1)
[2020-10-04] MEDS: ASPIRIN EC 81 MG TABLET PO SCH (09:42)
[2020-10-04] MEDS: APIXABAN 5 MG TABLET PO SCH ×2 (09:43→20:31)
[2020-10-04] MEDS: carvediloL 3.125 MG TABLET PO SCH ×2 (09:43→20:31)
[2020-10-04] MEDS: TAMSULOSIN 0.4 MG CAPSULE PO SCH (09:44)
[2020-10-04] MEDS: amLODIPine 5 MG TABLET PO SCH (09:45)
[2020-10-04] MEDS: SERTRALINE 100 MG TABLET PO SCH (09:45)
[2020-10-04] MEDS: PANTOPRAZOLE 40 MG TABLET PO SCH (09:47)
[2020-10-04] MEDS: ROSUVASTATIN 20 MG TABLET PO SCH (20:31)
[2020-10-05] MEDS ORDERED: LABETALOL 20 MG/4 ML SYRINGE IV PRN (01:27)
[2020-10-05] MEDS ORDERED: traZODone 50 MG TABLET PO ONE (01:30)
[2020-10-05] MEDS: chlordiazePOXIDE 25 MG CAPSULE PO SCH ×4 (01:36→21:05)
[2020-10-05] MEDS: carvediloL 6.25 MG TABLET PO SCH ×2 (10:14→21:04)
[2020-10-05] MEDS: TAMSULOSIN 0.4 MG CAPSULE PO SCH (10:14)
[2020-10-05] MEDS: PANTOPRAZOLE 40 MG TABLET PO SCH (10:14)
[2020-10-05] MEDS: LOSARTAN 25 MG TABLET PO SCH (10:14)
[2020-10-05] MEDS: ASPIRIN EC 81 MG TABLET PO SCH (10:14)
[2020-10-05] MEDS: SERTRALINE 100 MG TABLET PO SCH (10:15)
[2020-10-05] MEDS: APIXABAN 5 MG TABLET PO SCH ×2 (10:15→21:04)
[2020-10-05] MEDS: amLODIPine 5 MG TABLET PO SCH (10:15)
[2020-10-05] MEDS: SPIRONOLACTONE 25 MG TABLET PO SCH (10:15)
[2020-10-05] MEDS: ROSUVASTATIN 20 MG TABLET PO SCH (21:05)
[2020-10-06 06:51] LABS: Basophils # 0.1 10*3/uL (0.0-0.2); Basophils % 0.9 % (0.0-0.8); Eosinophils # 0.6 10*3/uL (0.0-0.87); Eosinophils % 9.6 % (0.00-10.9); Hematocrit 44.3 VOL% (42.0-52.0); Hemoglobin 14.1 GM/DL (14.0-18.0); Immature Granulocytes % 0.5 %; Immature Granulocytes Absolute 0.03 #; Lymphocytes # 1.4 10*3/uL (1.4-4.0); Lymphocytes % 22.2 % (21.2-54.2); Mean Corpuscular HGB Conc 31.8 GM/DL (32-36); Mean Corpuscular Volume 84.1 FL (87-102); Mean Platelet Volume 12.9 FL (9.6-12.0); Monocytes % 19.3 % (1.7-12.7); Neutrophils % 47.5 % (38.7-73.9); Platelet Count 146 T/CUMM (130-400); Red Blood Count 5.27 MC/CUMM (3.8-5.5); Red Cell Distribution Width 14.9 % (9.3-17.3); White Blood Count 6.5 T/CUMM (4-12)
[2020-10-06 06:56] LABS: Albumin 2.9 G/DL (3.4-5.0); Bilirubin,Total 0.7 MG/DL (0.2-1.0); Calcium 8.9 MG/DL (8.5-10.1); Osmolality,Calculated 274.5 MOS/KG (273-304); Potassium 4.7 MMOL/L (3.5-5.1); Total Protein 7.1 G/DL (6.4-8.2)
[2020-10-06 07:12] LABS: Band Neutrophils 2 % (0-10); Eosinophils 13 % (0-10); Hypochromasia 1+; Lymphocytes 26 % (20-55); Microcytosis 1+; Segmented Neutrophils 48 % (50-85); Total Cells Counted 100
[2020-10-06 07:13] LABS: Platelet Estimate Adequate
[2020-10-06] MEDS: LOSARTAN 25 MG TABLET PO SCH (08:55)
[2020-10-06] MEDS: SERTRALINE 100 MG TABLET PO SCH (08:55)
[2020-10-06] MEDS: carvediloL 6.25 MG TABLET PO SCH ×2 (08:56→21:33)
[2020-10-06] MEDS: ASPIRIN EC 81 MG TABLET PO SCH (08:56)
[2020-10-06] MEDS: amLODIPine 5 MG TABLET PO SCH (08:56)
[2020-10-06] MEDS: chlordiazePOXIDE 25 MG CAPSULE PO SCH ×3 (08:56→21:33)
[2020-10-06] MEDS: APIXABAN 5 MG TABLET PO SCH ×2 (08:56→21:33)
[2020-10-06] MEDS: SPIRONOLACTONE 25 MG TABLET PO SCH (08:56)
[2020-10-06] MEDS: TAMSULOSIN 0.4 MG CAPSULE PO SCH (08:56)
[2020-10-06] MEDS: PANTOPRAZOLE 40 MG TABLET PO SCH (08:56)
[2020-10-06] MEDS: ALBUTEROL/IPRATROPIUM 3 ML NEB RESP TX SCH ×2 (11:00→16:30)
[2020-10-06] MEDS: methylPREDNISolone SOD SUC 40 MG/1 ML VIAL IV SCH ×2 (14:12→21:35)
[2020-10-06] MEDS: AZITHROMYCIN 250 MG TABLET PO SCH (14:12)
[2020-10-06] MEDS: ROSUVASTATIN 20 MG TABLET PO SCH (21:33)
[2020-10-07] MEDS: BUDESONIDE/FORMOTEROL 160-4.5 INHALER 6 GM INH SCH ×3 (04:23→21:35)
[2020-10-07] MEDS: methylPREDNISolone SOD SUC 40 MG/1 ML VIAL IV SCH ×3 (05:07→21:35)
[2020-10-07 05:24] LABS: Basophils % 0.2 % (0.0-0.8); Hematocrit 44.6 VOL% (42.0-52.0); Hemoglobin 14.1 GM/DL (14.0-18.0); Immature Granulocytes % 0.5 %; Immature Granulocytes Absolute 0.02 #; Lymphocytes # 0.7 10*3/uL (1.4-4.0); Lymphocytes % 16.1 % (21.2-54.2); Mean Corpuscular HGB Conc 31.6 GM/DL (32-36); Mean Corpuscular Volume 83.2 FL (87-102); Mean Platelet Volume 12.6 FL (9.6-12.0); Monocytes % 2.6 % (1.7-12.7); Neutrophils % 80.6 % (38.7-73.9); Platelet Count 190 T/CUMM (130-400); Red Blood Count 5.36 MC/CUMM (3.8-5.5); Red Cell Distribution Width 14.5 % (9.3-17.3); White Blood Count 4.3 T/CUMM (4-12)
[2020-10-07 05:53] LABS: Calcium 9.4 MG/DL (8.5-10.1); Potassium 3.9 MMOL/L (3.5-5.1)
[2020-10-07 06:07] LABS: Eosinophils 1 % (0-10); Lymphocytes 14 % (20-55); Platelet Estimate Normal; Segmented Neutrophils 84 % (50-85); Total Cells Counted 100
[2020-10-07] MEDS: ALBUTEROL/IPRATROPIUM 3 ML NEB RESP TX SCH ×5 (07:51→21:15)
[2020-10-07] MEDS: LOSARTAN 25 MG TABLET PO SCH (08:58)
[2020-10-07] MEDS: PANTOPRAZOLE 40 MG TABLET PO SCH (08:58)
[2020-10-07] MEDS: NICOTINE 21 MG/24 HR PATCH TRANSDERM PRN (08:58)
[2020-10-07] MEDS: TAMSULOSIN 0.4 MG CAPSULE PO SCH (08:59)
[2020-10-07] MEDS: SERTRALINE 100 MG TABLET PO SCH (08:59)
[2020-10-07] MEDS: amLODIPine 5 MG TABLET PO SCH (08:59)
[2020-10-07] MEDS: chlordiazePOXIDE 25 MG CAPSULE PO SCH ×3 (08:59→21:34)
[2020-10-07] MEDS: AZITHROMYCIN 250 MG TABLET PO SCH (08:59)
[2020-10-07] MEDS: SPIRONOLACTONE 25 MG TABLET PO SCH (09:00)
[2020-10-07] MEDS: APIXABAN 5 MG TABLET PO SCH ×2 (09:00→21:34)
[2020-10-07] MEDS: ASPIRIN EC 81 MG TABLET PO SCH (09:00)
[2020-10-07] MEDS: carvediloL 6.25 MG TABLET PO SCH ×2 (09:00→21:35)
[2020-10-07] MEDS ORDERED: FUROSEMIDE 40 MG/4 ML VIAL IV ONE (09:13)
[2020-10-07] MEDS: ROSUVASTATIN 20 MG TABLET PO SCH (21:35)
[2020-10-08 05:48] LABS: Basophils % 0.2 % (0.0-0.8); Hematocrit 42.5 VOL% (42.0-52.0); Hemoglobin 14.1 GM/DL (14.0-18.0); Immature Granulocytes % 0.5 %; Immature Granulocytes Absolute 0.05 #; Lymphocytes # 0.5 10*3/uL (1.4-4.0); Lymphocytes % 4.5 % (21.2-54.2); Mean Corpuscular HGB Conc 33.2 GM/DL (32-36); Mean Platelet Volume 13.6 FL (9.6-12.0); Monocytes % 3.4 % (1.7-12.7); Neutrophils % 91.4 % (38.7-73.9); Platelet Count 171 T/CUMM (130-400); Red Blood Count 5.18 MC/CUMM (3.8-5.5); Red Cell Distribution Width 14.4 % (9.3-17.3)
[2020-10-08 05:54] LABS: White Blood Count 10.4 T/CUMM (4-12)
[2020-10-08 06:07] LABS: Calcium 9.1 MG/DL (8.5-10.1); Osmolality,Calculated 277.7 MOS/KG (273-304); Potassium 3.8 MMOL/L (3.5-5.1)
[2020-10-08 06:11] LABS: Band Neutrophils 1 % (0-10); Hypochromasia 1+; Lymphocytes 4 % (20-55); Microcytosis 1+; Platelet Estimate Adequate; Segmented Neutrophils 92 % (50-85); Total Cells Counted 100
[2020-10-08] MEDS: methylPREDNISolone SOD SUC 40 MG/1 ML VIAL IV SCH ×3 (06:29→22:12)
[2020-10-08] MEDS: ALBUTEROL/IPRATROPIUM 3 ML NEB RESP TX SCH ×4 (07:21→19:09)
[2020-10-08] MEDS: APIXABAN 5 MG TABLET PO SCH ×2 (09:28→22:12)
[2020-10-08] MEDS: carvediloL 6.25 MG TABLET PO SCH ×2 (09:28→22:12)
[2020-10-08] MEDS: PANTOPRAZOLE 40 MG TABLET PO SCH (09:28)
[2020-10-08] MEDS: LOSARTAN 25 MG TABLET PO SCH (09:29)
[2020-10-08] MEDS: SERTRALINE 100 MG TABLET PO SCH (09:29)
[2020-10-08] MEDS: SPIRONOLACTONE 25 MG TABLET PO SCH (09:29)
[2020-10-08] MEDS: AZITHROMYCIN 250 MG TABLET PO SCH (09:29)
[2020-10-08] MEDS: ASPIRIN EC 81 MG TABLET PO SCH (09:29)
[2020-10-08] MEDS: FUROSEMIDE 40 MG TABLET PO SCH (09:29)
[2020-10-08] MEDS: chlordiazePOXIDE 25 MG CAPSULE PO SCH ×3 (09:29→22:12)
[2020-10-08] MEDS: TAMSULOSIN 0.4 MG CAPSULE PO SCH (09:30)
[2020-10-08] MEDS: BUDESONIDE/FORMOTEROL 160-4.5 INHALER 6 GM INH SCH ×2 (10:10→22:12)
[2020-10-08] MEDS: ROSUVASTATIN 20 MG TABLET PO SCH (22:11)
[2020-10-09 05:06] LABS: Basophils % 0.1 % (0.0-0.8); Hematocrit 40.2 VOL% (42.0-52.0); Hemoglobin 13.1 GM/DL (14.0-18.0); Immature Granulocytes Absolute 0.08 #; Lymphocytes # 0.6 10*3/uL (1.4-4.0); Lymphocytes % 7.6 % (21.2-54.2); Mean Corpuscular HGB Conc 32.6 GM/DL (32-36); Mean Platelet Volume 13.7 FL (9.6-12.0); Monocytes % 8.2 % (1.7-12.7); Neutrophils % 83.1 % (38.7-73.9); Platelet Count 159 T/CUMM (130-400); Red Cell Distribution Width 14.5 % (9.3-17.3); White Blood Count 8.3 T/CUMM (4-12)
[2020-10-09 05:22] LABS: Calcium 8.7 MG/DL (8.5-10.1); Osmolality,Calculated 278.7 MOS/KG (273-304); Potassium 3.7 MMOL/L (3.5-5.1)
[2020-10-09 05:32] LABS: Platelet Estimate Adequate
[2020-10-09] MEDS: methylPREDNISolone SOD SUC 40 MG/1 ML VIAL IV SCH ×3 (06:33→17:20)
[2020-10-09] MEDS: ALBUTEROL/IPRATROPIUM 3 ML NEB RESP TX SCH ×4 (07:10→19:26)
[2020-10-09] MEDS: chlordiazePOXIDE 25 MG CAPSULE PO SCH ×3 (09:30→21:59)
[2020-10-09] MEDS: ASPIRIN EC 81 MG TABLET PO SCH (09:31)
[2020-10-09] MEDS: SPIRONOLACTONE 25 MG TABLET PO SCH (09:31)
[2020-10-09] MEDS: LOSARTAN 25 MG TABLET PO SCH (09:31)
[2020-10-09] MEDS: AZITHROMYCIN 250 MG TABLET PO SCH (09:31)
[2020-10-09] MEDS: APIXABAN 5 MG TABLET PO SCH ×2 (09:32→21:59)
[2020-10-09] MEDS: carvediloL 6.25 MG TABLET PO SCH ×2 (09:32→21:59)
[2020-10-09] MEDS: FUROSEMIDE 40 MG TABLET PO SCH (09:32)
[2020-10-09] MEDS: PANTOPRAZOLE 40 MG TABLET PO SCH (09:32)
[2020-10-09] MEDS: SERTRALINE 100 MG TABLET PO SCH (09:33)
[2020-10-09] MEDS: TAMSULOSIN 0.4 MG CAPSULE PO SCH (09:33)
[2020-10-09] MEDS: BUDESONIDE/FORMOTEROL 160-4.5 INHALER 6 GM INH SCH ×2 (09:34→22:02)
[2020-10-09] MEDS: NICOTINE 21 MG/24 HR PATCH TRANSDERM PRN (09:36)
[2020-10-09 14:41] LABS: % Iron Saturation 8.6 % (18-50)
[2020-10-09 14:49] LABS: Folate 3.94 NG/ML (5.38-24.0)
[2020-10-09] MEDS: ROSUVASTATIN 20 MG TABLET PO SCH (21:59)
[2020-10-10] MEDS: methylPREDNISolone SOD SUC 40 MG/1 ML VIAL IV SCH ×2 (06:32→18:55)
[2020-10-10] MEDS: ALBUTEROL/IPRATROPIUM 3 ML NEB RESP TX SCH ×4 (08:30→20:17)
[2020-10-10] MEDS: carvediloL 6.25 MG TABLET PO SCH (09:14)
[2020-10-10] MEDS: FUROSEMIDE 40 MG TABLET PO SCH (09:16)
[2020-10-10] MEDS: chlordiazePOXIDE 25 MG CAPSULE PO SCH ×3 (09:16→21:34)
[2020-10-10] MEDS: PANTOPRAZOLE 40 MG TABLET PO SCH (09:17)
[2020-10-10] MEDS: BUDESONIDE/FORMOTEROL 160-4.5 INHALER 6 GM INH SCH ×2 (09:17→21:34)
[2020-10-10] MEDS: APIXABAN 5 MG TABLET PO SCH ×2 (09:17→21:34)
[2020-10-10] MEDS: ASPIRIN EC 81 MG TABLET PO SCH (09:17)
[2020-10-10] MEDS: SPIRONOLACTONE 25 MG TABLET PO SCH (09:17)
[2020-10-10] MEDS: TAMSULOSIN 0.4 MG CAPSULE PO SCH (09:17)
[2020-10-10] MEDS: AZITHROMYCIN 250 MG TABLET PO SCH (09:17)
[2020-10-10] MEDS: FERROUS SULFATE 325 MG TABLET PO SCH (09:17)
[2020-10-10] MEDS: SERTRALINE 100 MG TABLET PO SCH (09:17)
[2020-10-10] MEDS: LOSARTAN 25 MG TABLET PO SCH (09:17)
[2020-10-10] MEDS ORDERED: FOLIC ACID 1 MG TABLET PO SCH (21:00)
[2020-10-10] MEDS: ROSUVASTATIN 20 MG TABLET PO SCH (21:34)
[2020-10-11 05:10] LABS: Basophils % 0.1 % (0.0-0.8); Eosinophils # 0.1 10*3/uL (0.0-0.87); Eosinophils % 0.5 % (0.00-10.9); Hematocrit 43.2 VOL% (42.0-52.0); Hemoglobin 13.8 GM/DL (14.0-18.0); Immature Granulocytes % 0.7 %; Immature Granulocytes Absolute 0.06 #; Lymphocytes # 2.3 10*3/uL (1.4-4.0); Lymphocytes % 25.2 % (21.2-54.2); Mean Corpuscular HGB Conc 31.9 GM/DL (32-36); Mean Corpuscular Volume 82.9 FL (87-102); Mean Platelet Volume 13.2 FL (9.6-12.0); Monocytes % 13.2 % (1.7-12.7); Neutrophils % 60.3 % (38.7-73.9); Platelet Count 171 T/CUMM (130-400); Red Blood Count 5.21 MC/CUMM (3.8-5.5); Red Cell Distribution Width 14.6 % (9.3-17.3); White Blood Count 9.1 T/CUMM (4-12)
[2020-10-11 05:32] LABS: Platelet Estimate Adequate
[2020-10-11 05:48] LABS: Calcium 8.3 MG/DL (8.5-10.1); Osmolality,Calculated 279.4 MOS/KG (273-304); Potassium 3.5 MMOL/L (3.5-5.1)
[2020-10-11] MEDS: methylPREDNISolone SOD SUC 40 MG/1 ML VIAL IV SCH (06:22)
[2020-10-11] MEDS: ALBUTEROL/IPRATROPIUM 3 ML NEB RESP TX SCH ×3 (08:07→15:04)
[2020-10-11] MEDS: FERROUS SULFATE 325 MG TABLET PO SCH (08:35)
[2020-10-11] MEDS: LOSARTAN 25 MG TABLET PO SCH (08:35)
[2020-10-11] MEDS: BUDESONIDE/FORMOTEROL 160-4.5 INHALER 6 GM INH SCH (08:36)
[2020-10-11] MEDS: ASPIRIN EC 81 MG TABLET PO SCH (08:36)
[2020-10-11] MEDS: APIXABAN 5 MG TABLET PO SCH (08:36)
[2020-10-11] MEDS: TAMSULOSIN 0.4 MG CAPSULE PO SCH (08:36)
[2020-10-11] MEDS: SPIRONOLACTONE 25 MG TABLET PO SCH (08:36)
[2020-10-11] MEDS: FUROSEMIDE 40 MG TABLET PO SCH (08:36)
[2020-10-11] MEDS: SERTRALINE 100 MG TABLET PO SCH (08:36)
[2020-10-11] MEDS: chlordiazePOXIDE 25 MG CAPSULE PO SCH ×2 (08:36→15:12)
[2020-10-11] MEDS: AZITHROMYCIN 250 MG TABLET PO SCH (08:36)
[2020-10-11] MEDS: PANTOPRAZOLE 40 MG TABLET PO SCH (08:36)
[2020-10-11] MEDS ORDERED: carvediloL 3.125 MG TABLET PO SCH (12:00)
[2020-10-11 13:40] VITALS: BP 107/62
== END 2020-10-11 15:39 | DRG 175 ==
LOC: N.EDINP 13:40 → N.ED 13:40 → N.CC 15:15 → SUATTDRO 10-03 07:10 → N.TELEN 10-06 00:32
PROVIDERS: ADMIT Internal Medicine Cardiovascular Disease; ATTEND Internal Medicine
PROC: CLCCHCL (ICD-10-PCS; 2020-10-02 15:15)